=== PATIENT | male | born 1995 | race Native Hawaiian/Other Pacific Islander ===

== ENCOUNTER 2020-03-30 09:41 | Outpatient (CLI) | payer BC, OTHER | END 2020-03-30 18:58 | disposition home or self-care (01) | LOC: LAB 09:41 | DX: Z20.828 Contact with and (suspected) exposure to other viral communicable diseases (principal) | CPT/HCPCS: 87635; G2023; U00003 ==

== ENCOUNTER 2021-04-14 19:26 | Emergency (ER) | payer OTHER ==
[~2021-04-14] VITALS: Ht 188 cm; Wt 113.4 kg
[2021-04-14 20:01] LABS: PLATELET COUNT 265 K/uL (142-355)
[2021-04-14 20:05] LABS: POTASSIUM 3.7 mmol/L (3.6-5.2); SODIUM 133 mmol/L (136-145)
[2021-04-14 20:07] LABS: PARTIAL THROMBOPLASTIN TIME 22.6 SECONDS (24.5-33.6)
[2021-04-14 21:00] VITALS: BP 122/68; TEMP 98.6
== END 2021-04-14 21:00 | disposition home or self-care (01) ==
LOC: ED 19:26
PROVIDERS: Hospitalist
DX: U07.1 COVID-19 (principal); J06.9 Acute upper respiratory infection, unspecified; F17.290 Nicotine dependence, other tobacco product, uncomplicated
CPT/HCPCS: 36415; 80053; 82550; 83880; 84484; 85027; 85379; 85610; 85730; 87502; 87635; 93005; 96360; 96375; 99284; J1100; J2405; U0003